=== PATIENT | male | born 1985 | race Caucasian/White ===

== ENCOUNTER 2018-08-27 11:03 | Emergency (ER) | payer SELFPAY ==
[~2018-08-27] VITALS: Ht 167.6 cm; Wt 82.0 kg
[2018-08-27] MEDS ORDERED: FAMOTIDINE 20MG/2ML VIAL IV ONE (11:30)
[2018-08-27] MEDS ORDERED: ONDANSETRON HCL 4MG/2ML INJ IV STA (11:30)
[2018-08-27] MEDS ORDERED: SODIUM CHLORIDE 0.9% 1,000 ML IV ONE (11:30)
[2018-08-27 11:44] LABS: BASOPHILS % 0.5 % (0.0-2.0); HEMATOCRIT. 42.8 % (42.0-52.0); HEMOGLOBIN. 14.8 g/dL (14.0-18.0); LYMPHOCYTES % 18.4 % (20.0-50.0); MEAN CORPUSCULAR HEMOGLOBIN 31.6 pg (28.0-32.0); MEAN CORPUSCULAR VOLUME 91.2 fL (80.0-94.0); MEAN PLATELET VOLUME 8.6 fl (7.4-10.4); MONOCYTES % 6.4 % (2.0-8.0); NEUTROPHILS % 74.7 % (40.0-76.0); PLATELET 258 x1000/uL (130-400)
[2018-08-27] MEDS ORDERED: LORAZEPAM 2MG/ML CPJ IV ONE ×2 (11:45→15:00)
[2018-08-27 11:49] LABS: CHLORIDE 107 mEq/L (98-107)
[2018-08-27 11:54] LABS: ETHANOL BLOOD 16 mg/dL
[2018-08-27] MEDS ORDERED: POTASSIUM CHLORIDE 20MEQ TABLET SR PO ONE (12:15)
[2018-08-27 14:43] LABS: *AMPHETAMINES SCREEN URINE NEGATIVE (NEGATIVE); *BARBITURATES SCREEN URINE NEGATIVE (NEGATIVE)
[2018-08-27 14:44] LABS: *BENZODIAZEPINES SCREEN URINE NEGATIVE (NEGATIVE); *COCAINE SCREEN URINE PRESUMTIVE POSITIVE (NEGATIVE); METHADONE URINE SCREEN NEGATIVE (NEGATIVE); OPIATES URINE SCREEN NEGATIVE (NEGATIVE); PHENCYCLIDINE URINE SCREEN NEGATIVE (NEGATIVE)
[2018-08-27 14:45] LABS: CANNABINOID URINE SCREEN NEGATIVE (NEGATIVE)
[2018-08-27 16:35] VITALS: BP 137/84
== END 2018-08-27 16:51 | disposition home or self-care (01) ==
LOC: ER 11:03
DX: F10.129 Alcohol abuse with intoxication, unspecified (principal); Y90.0 Blood alcohol level of less than 20 mg/100 ml; F14.10 Cocaine abuse, uncomplicated; R00.0 Tachycardia, unspecified; F17.200 Nicotine dependence, unspecified, uncomplicated
CPT/HCPCS: 36415; 71045; 80053; 80305; 80320; 83690; 83880; 84484; 85025; 93005; 96374; 96375; 96376; 99284; J2060; J2405; J3490; J7030; G0480

== ENCOUNTER 2018-08-29 21:31 | Emergency (ER) | payer SELFPAY ==
[~2018-08-29] VITALS: Ht 180.3 cm; Wt 82.0 kg
[2018-08-30] MEDS ORDERED: SODIUM CHLORIDE 0.9% 1,000 ML IV ONE (01:36)
[2018-08-30] MEDS ORDERED: ONDANSETRON HCL 4MG/2ML INJ IV STA (01:36)
[2018-08-30 02:10] LABS: BASOPHILS % 0.6 % (0.0-2.0); EOSINOPHILS % 1.4 % (0.0-5.0); HEMATOCRIT. 43.9 % (42.0-52.0); LYMPHOCYTES % 22.5 % (20.0-50.0); MEAN CORPUSCULAR HEMOGLOBIN 31.9 pg (28.0-32.0); MEAN CORPUSCULAR VOLUME 93.6 fL (80.0-94.0); MEAN PLATELET VOLUME 9.6 fl (7.4-10.4); MONOCYTES % 5.4 % (2.0-8.0); NEUTROPHILS % 70.1 % (40.0-76.0); PLATELET 252 x1000/uL (130-400); RED BLOOD CELL COUNT 4.69 mill/uL (4.7-6.1); RED CELL DISTRIBUTION WIDTH 12.8 % (11.6-14.6)
[2018-08-30 02:14] LABS: CHLORIDE 102 mEq/L (98-107)
[2018-08-30 05:53] VITALS: BP 106/54
== END 2018-08-30 05:56 | disposition home or self-care (01) ==
LOC: ER 21:31
DX: R53.1 Weakness (principal)
CPT/HCPCS: 36415; 80053; 85025; 93005; 96374; 99284; J2405; J7030